=== PATIENT | female | born 1945 ===

== ENCOUNTER 2022-02-10 14:38 | Inpatient (IN) | payer MEDICARE ==
--- NOTE | 2022-02-10 15:05 | ERPHSYRPT ---
- History of Present Illness Time Seen by Provider: 02/10/22 14:55 Source: patient, family Exam Limitations: no limitations Physician History: This is a 76-year-old white female patient who was brought in by her family and was last seen normal last night. The report provided us by patient's daughter was the patient was found on the ground and could not get up on her own this morning which was several hours ago. Since that time she has had weakness on her right side and slurred speech. Patient arrives to the emergency department with right-sided weakness of her right and left lower extremities. Patient is right handed Timing/Duration: today Severity: mild Character of Deficits: new weakness (Right side), impaired speech (Per family members. She does not appear to have impaired speech on my examination) Deficits: decrease ability to stand, decrease ability to walk Baseline/Normal Cognition: alert oriented x 3 Current Cognition: alert oriented x 3 Baseline Gait: walks w/o assistance Associated Symptoms: weakness (Right side), slurred speech (Per family members) Allergies/Adverse Reactions: No Known Drug Allergies Allergy (Verified 02/10/22 15:35) Home Medications: No Reportable Medications [No Reported Medications] 02/10/22 [History] Travel Risk - International Travel Have you traveled outside of the country in past 3 weeks: No - Coronavirus Screening Are you exhibiting any of the following symptoms?: No Close contact with a COVID-19 positive Pt in past 14-21 Days: No - Review of Systems Constitutional: Weakness (Right upper and right lower extremity) Eyes: No Symptoms Ears, Nose, & Throat: No Symptoms Respiratory: No Symptoms Cardiac: No Symptoms Abdominal/Gastrointestinal: No Symptoms Genitourinary Symptoms: No Symptoms Musculoskeletal: No Symptoms Skin: No Symptoms Neurological: Gait Changes (Right upper and right lower extremity weakness that is new), Speech Changes (Per family members) Psychological: No Symptoms Endocrine: No Symptoms Hematologic/Lymphatic: No Symptoms Immunological/Allergic: No Symptoms All Other Systems: Reviewed and Negative - Past Medical History Pertinent Past Medical History: Yes - Past Surgical History Past Surgical History: Yes - Nursing Vital Signs Nursing Vital Signs: Initial Vital Signs Temperature 96.6 F 02/10/22 15:01 Pulse Rate 94 H 02/10/22 15:01 Blood Pressure 163/97 02/10/22 15:01 O2 Sat by Pulse Oximetry 97 02/10/22 15:01 Pain Scale Pain Intensity 0 - [place] Coma Scale Best Eye Response ([place]): (4) open spontaneously Best Verbal Response ([place]): (5) oriented Best Motor Response ([place]): (6) obeys commands Sul[place] Total: 15 - Physical Exam General Appearance: no apparent distress, alert, obese Eye Exam: bilateral eye: normal inspection, PERRL, EOMI Ears, Nose, Throat Exam: normal ENT inspection, TMs normal, pharynx normal, moist mucous membranes Neck Exam: normal inspection, non-tender, supple, full range of motion Respiratory: normal breath sounds, lungs clear, airway intact, No chest tenderness, No respiratory distress Cardiovascular: regular rate/rhythm, normal heart sounds, normal peripheral pu lses Gastrointestinal: soft, normal bowel sounds, No tenderness Pelvic Exam: not done Rectal Exam: not done Back Exam: normal inspection, normal range of motion, No CVA tenderness, No vertebral tenderness Extremity Exam: normal inspection, normal range of motion, pelvis stable, No pedal edema 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, 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: normal hearing, normal speech, PERRL, tongue midline Coordination/Gait: normal finger to nose, normal cerebellar function Motor/Sensory: no motor deficit, no sensory deficit, no pronator drift Skin Exam: normal color, warm, dry SpO2 Interpretation: normal O2 Delivery: Room Air - Course Nursing assessment & vital signs reviewed: Yes Ordered Tests: Active Orders 24 hr Category Date Time Status EKG-ER Only STAT Care 02/10/22 15:05 Active IV Insertion STAT Care 02/10/22 15:05 Active NPO (ED) STAT Care 02/10/22 15:05 Active Pulse Oximetry (ED) STAT Care 02/10/22 15:05 Active CHEST 1 VIEW (PORTABLE) Stat Exams 02/10/22 16:01 Completed ECHO W/2D AND DOPPLER [US] Stat Exams 02/10/22 16:21 Ordered HEAD WITHOUT CONTRAST [CT] Stat Exams 02/10/22 14:56 Completed MRI BRAIN W/O CONTRAST [MRI] Stat Exams 02/10/22 16:21 Taken BLOOD CULTURE Stat Lab 02/10/22 16:10 Received CBC W DIFF Stat Lab 02/10/22 15:14 Completed CMP Stat Lab 02/10/22 15:14 Completed CULTURE,URINE Stat Lab 02/10/22 16:06 Received [place] Screen Stat Lab 02/10/22 15:30 Completed UA W/RFX CULTURE Stat Lab 02/10/22 16:06 Completed Transfer Order Routine Transfer 02/10/22 Ordered Medication Summary Generic Name Dose Route Start Last Admin Trade Name Freirene PRN Reason Stop Dose Admin Ceftriaxone Sodium/Dextrose 1 g in 50 mls @ 100 mls/hr 02/10/22 16:51 Rocephin 1 Gm-D5w 50 Ml Bag IV 02/10/22 17:20 STAT STA Sodium Chloride 1,000 mls @ 999 mls/hr 02/10/22 16:52 Sodium Chloride 0.9% 1000 Ml IV 02/10/22 17:52 .Q1H1M STA Discontinued Medications Generic Name Dose Route Start Last Admin Trade Name Freq PRN Reason Stop Dose Admin Aspirin 325 mg 02/10/22 16:54 Aspirin 325 Mg Tablet.Ec PO 02/10/22 16:55 STAT ONE Sodium Chloride Confirm 02/10/22 16:58 Sodium Chloride 0.9% 1000 Ml Administered 02/10/22 16:59 Dose 1,000 mls @ ud .ROUTE .STK-MED ONE Ceftriaxone Sodium/Dextrose Confirm 02/10/22 16:58 Rocephin 1 Gm-D5w 50 Ml Bag Administered 02/10/22 16:59 Dose 1 g in 50 mls @ ud IV .STK-MED ONE Lab/Rad Data: Laboratory Result Diagrams 02/10/22 15:14 02/10/22 15:14 Laboratory Results 02/10/22 02/10/22 02/10/22 Range/Units 16:06 15:30 15:14 WBC (4.0-10.5) x10^3/uL RBC (4.1-5.4) x10^6/uL Hgb (12.0-16.0) g/dL Hct (35-47) % MCV (78-100) fL MCH (26-32) pg MCHC (32-36) g/dL RDW (11.5-14.0) % Plt Count (150-450) x10^3/uL MPV (7.5-11.0) fL Gran % (36.0-66.0) % Immature Gran % (Auto) (0.00-0.4) % Nucleat RBC Rel Count (0.00-0.1) % Eos # (Auto) (0-0.5) x10^3/uL Immature Gran # (Auto) (0.00-0.03) x10^3u/L Absolute Lymphs (auto) (1.0-4.6) x10^3/uL Absolute Monos (auto) (0.0-1.3) x10^3/uL Absolute Nucleated RBC (0.00-0.01) x10^3u/L Lymphocytes % (24.0-44.0) % Monocytes % (0.0-12.0) % Eosinophils % (0.00-5.0) % Basophils % (0.0-0.4) % Absolute Granulocytes (1.4-6.9) x10^3/uL Basophils # (0-0.4) x10^3/uL Sodium (137-145) mmol/L Potassium (3.5-5.1) mmol/L Chloride (98-107) mmol/L Carbon Dioxide (22-30) mmol/L Anion Gap (5-15) MEQ/L BUN (7-17) mg/dL Creatinine (0.52-1.04) mg/dL Estimated GFR ML/MIN Glucose (74-106) mg/dL Calcium (8.4-10.2) mg/dL Total Bilirubin (0.2-1.3) mg/dL AST (14-36) U/L ALT (0-35) U/L Alkaline Phosphatase (38-126) U/L Serum Total Protein (6.3-8.2) g/dL Albumin (3.5-5.0) g/dL Urinalys Dipstick Clnc MAIN LAB Urine Color YELLOW (YELLOW) Urine Appearance CLEAR (CLEAR) Urine pH 5.5 (5-6) Ur Specific [place] 1.025 (1.005-1.025) POC Urine Protein Conf NEGATIVE (Negative) Urine Ketones LARGE-80 (NEGATIVE) Urine Nitrite NEGATIVE (NEGATIVE) Urine Bilirubin NEGATIVE (NEGATIVE) Urine Urobilinogen 0.2 (0-1) mg/dL Urine Leukocytes MODERATE (NEGATIVE) Urine WBC (Auto) 16-25 (0-5) /HPF Urine RBC (Auto) 0-2 (0-2) /HPF U Epithel Cells (Auto) RARE (FEW) /HPF Urine Bacteria (Auto) FEW (NEGATIVE) /HPF Urine RBC TRACE NON-HEM (0-5) Aleks/ul Urine Mucus (Auto) SLIGHT (NEGATIVE) /HPF Ur Culture Indicated? YES Urine Glucose NEGATIVE (NEGATIVE) mg/dL Monoscreen NEGATIVE (Negative) Influenza Type A Ag NEGATIVE (NEGATIVE) Influenza Type B Ag NEGATIVE (NEGATIVE) RSV (PCR) NEGATIVE (Negative) SARS-CoV-2 (PCR) NEGATIVE (NEGATIVE) 02/10/22 02/10/22 Range/Units 15:14 15:14 WBC 17.0 H (4.0-10.5) x10^3/uL RBC 5.03 (4.1-5.4) x10^6/uL Hgb 14.2 (12.0-16.0) g/dL Hct 44.5 (35-47) % MCV 88.5 (78-100) fL MCH 28.2 (26-32) pg MCHC 31.9 L (32-36) g/dL RDW 12.8 (11.5-14.0) % Plt Count 296 (150-450) x10^3/uL MPV 9.7 (7.5-11.0) fL Gran % 88.2 H (36.0-66.0) % Immature Gran % (Auto) 0.4 (0.00-0.4) % Nucleat RBC Rel Count 0.0 (0.00-0.1) % Eos # (Auto) 0 (0-0.5) x10^3/uL Immature Gran # (Auto) 0.06 H (0.00-0.03) x10^3u/L Absolute Lymphs (auto) 0.96 L (1.0-4.6) x10^3/uL Absolute Monos (auto) 0.92 (0.0-1.3) x10^3/uL Absolute Nucleated RBC 0.00 (0.00-0.01) x10^3u/L Lymphocytes % 5.7 L (24.0-44.0) % Monocytes % 5.4 (0.0-12.0) % Eosinophils % 0.0 (0.00-5.0) % Basophils % 0.3 (0.0-0.4) % Absolute Granulocytes 15.00 H (1.4-6.9) x10^3/uL Basophils # 0.05 (0-0.4) x10^3/uL Sodium 140 (137-145) mmol/L Potassium 3.7 (3.5-5.1) mmol/L Chloride 106 (98-107) mmol/L Carbon Dioxide 24 (22-30) mmol/L Anion Gap 14.3 (5-15) MEQ/L BUN 10 (7-17) mg/dL Creatinine 0.74 (0.52-1.04) mg/dL Estimated GFR > 60.0 ML/MIN Glucose 120 H (74-106) mg/dL Calcium 9.4 (8.4-10.2) mg/dL Total Bilirubin 0.80 (0.2-1.3) mg/dL AST 25 (14-36) U/L ALT 19 (0-35) U/L Alkaline Phosphatase 74 (38-126) U/L Serum Total Protein 7.4 (6.3-8.2) g/dL Albumin 4.4 (3.5-5.0) g/dL Urinalys Dipstick Clnc Urine Color (YELLOW) Urine Appearance (CLEAR) Urine pH (5-6) Ur Specific [place] (1.005-1.025) POC Urine Protein Conf (Negative) Urine Ketones (NEGATIVE) Urine Nitrite (NEGATIVE) Urine Bilirubin (NEGATIVE) Urine Urobilinogen (0-1) mg/dL Urine Leukocytes (NEGATIVE) Urine WBC (Auto) (0-5) /HPF Urine RBC (Auto) (0-2) /HPF U Epithel Cells (Auto) (FEW) /HPF Urine Bacteria (Auto) (NEGATIVE) /HPF Urine RBC (0-5) Aleks/ul Urine Mucus (Auto) (NEGATIVE) /HPF Ur Culture Indicated? Urine Glucose (NEGATIVE) mg/dL Monoscreen (Negative) Influenza Type A Ag (NEGATIVE) Influenza Type B Ag (NEGATIVE) RSV (PCR) (Negative) SARS-CoV-2 (PCR) (NEGATIVE) - Progress Progress: unchanged, re-examined Progress Note: 02/10/22 15:38 CAT scan of the head without contrast shows nonacute senile brain with remote bilateral basal ganglia lacunar infarcts. 02/10/22 16:47 We obtained a telemetry neuro consultation from Dr. Tj Vieira. He recommends that the patient have an aspirin a day and be admitted and observed in the hospital setting and have a TIA work-up including echocardiogram and MRI of the brain. I spoke with Dr. Barfield who is covering from the hospitalist standpoint. We will admit the patient in the hospital. We are waiting reports from the chest x-ray and the urinalysis to determine source of leukocytosis. If there is no source we will still place her on an antibiotic and repeat labs in the morning. 02/10/22 17:00 I was just informed that the echocardiogram cannot be performed until 02/13/2022. Counseled pt/family regarding: lab results, diagnosis, rad results - Departure Departure Disposition: Home Clinical Impression: TIA (transient ischemic attack), Leukocytosis, UTI (urinary tract infection), Dehydration Condition: Stable Critical Care Time: Yes Critical Care Time(excluding separately billable procedures): Critical 30-74 mins (30) Referrals: ALEJANDRA COLLINS [facility]CH[facility]IC [Primary Care Provider] - Follow up/PCP as directed
--- NOTE | 2022-02-10 15:19 | XRAY ---
Indication: Right-sided weakness and dizziness. Stroke. Multiple contiguous axial images obtained through the head without contrast. Comparison: None Age-appropriate global atrophy and mild periventricular degenerative micro-ischemia bilaterally. Bilateral basal ganglia remote lacunar infarcts. No acute intracranial hemorrhage, abnormal extra-axial fluid collection, or mass effect. Fourth ventricle is midline without hydrocephalus. Bony calvarium intact. Visualized paranasal sinuses and mastoid air cells are clear. Impression: Nonacute senile brain with remote bilateral basal ganglia lacunar infarcts.
[2022-02-10 15:22] LABS: Basophil (Absolute #) 0.05 x10^3/uL (0-0.4); Eosinophil (Absolute #) 0 x10^3/uL (0-0.5); Hematocrit 44.5 % (35-47); Hemoglobin 14.2 g/dL (12.0-16.0); Lymphocyte (Absolute #) 0.96 x10^3/uL (1.0-4.6); Lymphocytes % 5.7 % (24.0-44.0); Mean Cell Volume 88.5 fL (78-100); Mean Corpuscular Hemoglobin 28.2 pg (26-32); Mean Corpuscular Hgb Concent. 31.9 g/dL (32-36); Mean Platelet Volume 9.7 fL (7.5-11.0); Monocyte (Absolute #) 0.92 x10^3/uL (0.0-1.3); Monocytes % 5.4 % (0.0-12.0); Neutrophil % 88.2 % (36.0-66.0); Platelet Count 296 x10^3/uL (150-450); Red Blood Count 5.03 x10^6/uL (4.1-5.4); Red Cell Distribution Width 12.8 % (11.5-14.0)
[2022-02-10 15:50] LABS: ALBUMIN 4.4 g/dL (3.5-5.0); ALKALINE PHOSPHATASE 74 U/L (38-126); ANION GAP 14.3 MEQ/L (5-15); BLOOD UREA NITROGEN 10 mg/dL (7-17); CHLORIDE 106 mmol/L (98-107); Calcium 9.4 mg/dL (8.4-10.2); Carbon Dioxide 24 mmol/L (22-30); Creatinine 1 0.74 mg/dL (0.52-1.04); EST GLOMERULAR FILTRATION RATE > 60.0 ML/MIN; Glucose 120 mg/dL (74-106); Potassium 3.7 mmol/L (3.5-5.1); SGOT/AST 25 U/L (14-36); SGPT/ALT 19 U/L (0-35); SODIUM 140 mmol/L (137-145); Total Protein 7.4 g/dL (6.3-8.2)
[2022-02-10 16:08] LABS: INFLUENZA A NEGATIVE (NEGATIVE); INFLUENZA B NEGATIVE (NEGATIVE); RESPIRATORY SYNCTIAL VIRUS NEGATIVE (Negative); SARS-CoV-2 Xpert Express NEGATIVE (NEGATIVE)
[2022-02-10 16:32] LABS: Appearance CLEAR (CLEAR); Bilirubin NEGATIVE (NEGATIVE); Glucose NEGATIVE (NEGATIVE); Ketones LARGE-80 (NEGATIVE); Ph 5.5 (5-6); RBC TRACE NON-HEM Ery/ul (0-5); Specific Gravity 1.025 (1.005-1.025)
[2022-02-10 16:33] LABS: Dipstick done @ ? MAIN LAB; Nitrite NEGATIVE (NEGATIVE); Protein,Urine Dip NEGATIVE (Negative); Urobilinogen 0.2 mg/dL (0-1)
[2022-02-10 16:35] LABS: Bacteria FEW /HPF (NEGATIVE); Epithelial Cells RARE /HPF (FEW); Mucus SLIGHT /HPF (NEGATIVE); RBC 0-2 /HPF (0-2)
[2022-02-10 16:36] LABS: Urine Cultured Indicated? YES
--- NOTE | 2022-02-10 16:36 | XRAY ---
Indication: Right-sided weakness. Leukocytosis. Comparison: None Portable chest demonstrates normal heart and lungs with incidental left lung calcified granuloma. Bony thorax intact with mild osteopenia and degenerative changes.
[2022-02-10] MEDS ORDERED: ROCEPHIN 1 Gm-D5w 50 ml Bag** 1 G/50 ML IVPB IV STA (16:51)
[2022-02-10] MEDS ORDERED: Sodium Chloride 0.9% 1000 ML 1,000 ML IV STA (16:52)
[2022-02-10] MEDS ORDERED: Ecotrin 325 MG PO ONE (16:54)
[2022-02-10] MEDS ORDERED: Sodium Chloride 0.9% 1000 ML 1,000 ML ONE (16:58)
[2022-02-10] MEDS ORDERED: ROCEPHIN 1 Gm-D5w 50 ml Bag** 1 G/50 ML IVPB IV ONE (16:58)
--- NOTE | 2022-02-10 17:02 | XRAY ---
Indication: Weakness, headache, confusion. Stroke. Sagittal, coronal, and axial MRI brain performed without contrast using T1, T2, FLAIR, diffusion, and ADC sequences. Comparison: None Age-appropriate global atrophy and mild periventricular degenerative micro-ischemia bilaterally. Right occipital lobe demonstrates a few small foci of restricted signal, largest 1.3 cm favoring acute micro-ischemia. Left occipital lobe demonstrates 8 mm focus of acute micro-ischemia. No acute intracranial hemorrhage, abnormal extra-axial fluid collection, or mass effect. Basal ganglia demonstrates incidental prominent Virchow-Misael spaces bilaterally. Fourth ventricle is midline without hydrocephalus. 7/8 cranial nerve complex bilaterally symmetric. Normal flow void signal within the major intracerebral circulation. Normal appearing craniocervical junction and sella turcica. Visualized paranasal sinuses are clear. Impression: 1. Multifocal occipital lobe acute micro-ischemia, right greater than left. No acute hemorrhage or mass effect. 2. Atrophy and degenerative micro-ischemia within normal limits for patient's age.
[2022-02-10] MEDS ORDERED: Zofran 4 MG/2 ML VIAL IV PRN (18:00)
[2022-02-10] MEDS ORDERED: TYLENOL 325 MG PO PRN (18:00)
[2022-02-11] MEDS: Sodium Chloride 0.9% 1000 ML 1,000 ML IV SCH ×3 (02:09→16:26)
[2022-02-11 05:24] LABS: Absolute Neutrophil Ct (ANC) 6.13 x10^3/uL (1.4-6.9); Basophil (Absolute #) 0.05 x10^3/uL (0-0.4); Eosinophil % 1.5 % (0.00-5.0); Eosinophil (Absolute #) 0.15 x10^3/uL (0-0.5); Hematocrit 41.1 % (35-47); Hemoglobin 13.1 g/dL (12.0-16.0); Lymphocyte (Absolute #) 2.69 x10^3/uL (1.0-4.6); Mean Cell Volume 89.3 fL (78-100); Mean Corpuscular Hemoglobin 28.5 pg (26-32); Mean Corpuscular Hgb Concent. 31.9 g/dL (32-36); Mean Platelet Volume 9.8 fL (7.5-11.0); Monocyte (Absolute #) 0.91 x10^3/uL (0.0-1.3); Monocytes % 9.1 % (0.0-12.0); Neutrophil % 61.6 % (36.0-66.0); Platelet Count 269 x10^3/uL (150-450)
[2022-02-11 05:51] LABS: ALBUMIN 3.6 g/dL (3.5-5.0); ALKALINE PHOSPHATASE 60 U/L (38-126); ANION GAP 10.7 MEQ/L (5-15); BLOOD UREA NITROGEN 6 mg/dL (7-17); CHLORIDE 109 mmol/L (98-107); Calcium 8.6 mg/dL (8.4-10.2); Carbon Dioxide 24 mmol/L (22-30); Creatinine 1 0.74 mg/dL (0.52-1.04); EST GLOMERULAR FILTRATION RATE > 60.0 ML/MIN; Glucose 101 mg/dL (74-106); Potassium 3.5 mmol/L (3.5-5.1); SGOT/AST 21 U/L (14-36); SGPT/ALT 15 U/L (0-35); SODIUM 140 mmol/L (137-145); Total Protein 6.2 g/dL (6.3-8.2)
--- NOTE | 2022-02-11 08:27 | PCM.HP ---
History of Present Illness - Chief Complaint Chief Complaint: TIA, UTI History of Present Illness: is a 76 year old female.who was brought in by her family and was last seen normal last night. The report provided us by patient's daughter was the patient was found on the ground and could not get up on her own this morning which was several hours ago. Since that time she has had weakness on her right side and slurred speech. Patient arrives to the emergency department with rig ht-sided weakness of her right and left lower extremities. Patient is right handed Timing/Duration: today Severity: mild Character of Deficits: new weakness (Right side), impaired speech (Per family members. She does not appear to have impaired speech on my examination) Deficits: decrease ability to stand, decrease ability to walk Baseline/Normal Cognition: alert oriented x 3 Current Cognition: alert oriented x 3 Baseline Gait: walks w/o assistance Associated Symptoms: weakness (Right side), slurred speech (Per family members) Patient is living by herself and has been sick for few days. - Review of Systems Constitutional: Lethargy, Weakness, No Fever, No Chills Eyes: No Symptoms Ears, Nose, & Throat: No Symptoms Respiratory: No Cough, No Short Of Breath Cardiac: No Chest Pain, No Edema, No Syncope Abdominal/Gastrointestinal: No Abdominal Pain, No Nausea, No Vomiting, No Diarrhea Genitourinary Symptoms: No Dysuria Musculoskeletal: No Back Pain, No Neck Pain Skin: No Rash Neurological: Focal Weakness, Gait Changes, Lethargy, Speech Changes, No Dizziness, No Sensory Changes Psychological: No Symptoms Endocrine: No Symptoms Hematologic/Lymphatic: No Symptoms Immunological/Allergic: No Symptoms Medications & Allergies Home Medications: Home Medication List No Reportable Medications [No Reported Medications] 02/10/22 [History Confirmed 02/10/22] Allergies/Adverse Reactions: Allergies Allergy/AdvReac Type Severity Reaction Status Date / Time No Known Drug Allergies Allergy Verified 02/10/22 15:35 - Past Medical History Past Medical History: Yes Neurological History: No Pertinent History ENT History: No Pertinent History Cardiac History: No Pertinent History Respiratory History: No Pertinent History Endocrine Medical History: No Pertinent History Musculoskelatal History: No Pertinent History GI Medical History: No Pertinent History History: No Pertinent History Pyscho-Social History: No Pertinent History Reproductive Disorders: No Pertinent History - Female History Are you now?: No - Past Surgical History Past Surgical History: Yes Neuro Surgical History: No Pertinent History Cardiac History: No Pertinent History Respiratory Surgery: No Pertinent History GI Surgical History: No Pertinent History Genitourinary Surgical Hx: No Pertinent History Musculskeletal Surgical Hx: Orthopedic Surgery Female Surgical History: No Pertinent History Other Surgical History: hand sx - Social History Smoking Status: Never smoker Alcohol: None Drug Use: none - Physical Exam Vital Signs: Vital Signs - 24 hr Temp Pulse Resp BP Pulse Ox 02/11/22 07:01 98.0 F 91 H 16 183/81 96 02/11/22 04:00 98.6 F 90 16 171/77 96 02/11/22 00:18 98.2 F 101 H 16 136/66 96 02/10/22 19:57 99.3 F 100 H 20 140/99 94 L 02/10/22 18:18 97.8 F 95 H 16 172/92 98 02/10/22 18:05 95 02/10/22 17:45 92 H 16 180/82 95 02/10/22 15:23 94 L 02/10/22 15:01 96.6 F 94 H 163/97 97 General Appearance: moderate distress, lethargy Neurologic Exam: alert, nml station & gait, motor deficits (right side), sensory deficit (right side), disoriented, confusion Eye Exam: PERRL/EOMI, eyes nml inspection Ears, Nose, Throat Exam: normal ENT inspection, TMs normal, pharynx normal, moist mucous membranes Neck Exam: normal inspection, non-tender, supple, full range of motion Respiratory Exam: normal breath sounds, lungs clear, No respiratory distress Cardiovascular Exam: regular rate/rhythm, normal heart sounds, normal peripheral pulses Gastrointestinal/Abdomen Exam: soft, normal bowel sounds, No tenderness, No mass Back Exam: normal inspection, normal range of motion, No CVA tenderness, No vertebral tenderness Extremity Exam: normal inspection, normal range of motion, pelvis stable Skin Exam: normal color, warm, dry, No rash Lymphatic Exam: No adenopathy Results - Labs Lab/Micro Results: Lab Results-Last 24 Hours 02/10/22 02/10/22 02/10/22 Range/Units 15:14 15:14 15:14 WBC 17.0 H (4.0-10.5) x10^3/uL RBC 5.03 (4.1-5.4) x10^6/uL Hgb 14.2 (12.0-16.0) g/dL Hct 44.5 (35-47) % MCV 88.5 (78-100) fL MCH 28.2 (26-32) pg MCHC 31.9 L (32-36) g/dL RDW 12.8 (11.5-14.0) % Plt Count 296 (150-450) x10^3/uL MPV 9.7 (7.5-11.0) fL Gran % 88.2 H (36.0-66.0) % Immature Gran % (Auto) 0.4 (0.00-0.4) % Nucleat RBC Rel Count 0.0 (0.00-0.1) % Eos # (Auto) 0 (0-0.5) x10^3/uL Immature Gran # (Auto) 0.06 H (0.00-0.03) x10^3u/L Absolute Lymphs (auto) 0.96 L (1.0-4.6) x10^3/uL Absolute Monos (auto) 0.92 (0.0-1.3) x10^3/uL Absolute Nucleated RBC 0.00 (0.00-0.01) x10^3u/L Lymphocytes % 5.7 L (24.0-44.0) % Monocytes % 5.4 (0.0-12.0) % Eosinophils % 0.0 (0.00-5.0) % Basophils % 0.3 (0.0-0.4) % Absolute Granulocytes 15.00 H (1.4-6.9) x10^3/uL Basophils # 0.05 (0-0.4) x10^3/uL Sodium 140 (137-145) mmol/L Potassium 3.7 (3.5-5.1) mmol/L Chloride 106 (98-107) mmol/L Carbon Dioxide 24 (22-30) mmol/L Anion Gap 14.3 (5-15) MEQ/L BUN 10 (7-17) mg/dL Creatinine 0.74 (0.52-1.04) mg/dL Estimated GFR > 60.0 ML/MIN Glucose 120 H (74-106) mg/dL Calcium 9.4 (8.4-10.2) mg/dL Total Bilirubin 0.80 (0.2-1.3) mg/dL AST 25 (14-36) U/L ALT 19 (0-35) U/L Alkaline Phosphatase 74 (38-126) U/L Serum Total Protein 7.4 (6.3-8.2) g/dL Albumin 4.4 (3.5-5.0) g/dL Urinalys Dipstick Clnc Urine Color (YELLOW) Urine Appearance (CLEAR) Urine pH (5-6) Ur Specific [place] (1.005-1.025) POC Urine Protein Conf (Negative) Urine Ketones (NEGATIVE) Urine Nitrite (NEGATIVE) Urine Bilirubin (NEGATIVE) Urine Urobilinogen (0-1) mg/dL Urine Leukocytes (NEGATIVE) Urine WBC (Auto) (0-5) /HPF Urine RBC (Auto) (0-2) /HPF U Epithel Cells (Auto) (FEW) /HPF Urine Bacteria (Auto) (NEGATIVE) /HPF Urine RBC (0-5) Aleks/ul Urine Mucus (Auto) (NEGATIVE) /HPF Ur Culture Indicated? Urine Glucose (NEGATIVE) mg/dL Monoscreen (Negative) Influenza Type A Ag NEGATIVE (NEGATIVE) Influenza Type B Ag NEGATIVE (NEGATIVE) RSV (PCR) NEGATIVE (Negative) SARS-CoV-2 (PCR) NEGATIVE (NEGATIVE) Group A Strep Antibody (NEGATIVE) 02/10/22 02/10/22 02/10/22 Range/Units 15:30 16:06 16:15 WBC (4.0-10.5) x10^3/uL RBC (4.1-5.4) x10^6/uL Hgb (12.0-16.0) g/dL Hct (35-47) % MCV (78-100) fL MCH (26-32) pg MCHC (32-36) g/dL RDW (11.5-14.0) % Plt Count (150-450) x10^3/uL MPV (7.5-11.0) fL Gran % (36.0-66.0) % Immature Gran % (Auto) (0.00-0.4) % Nucleat RBC Rel Count (0.00-0.1) % Eos # (Auto) (0-0.5) x10^3/uL Immature Gran # (Auto) (0.00-0.03) x10^3u/L Absolute Lymphs (auto) (1.0-4.6) x10^3/uL Absolute Monos (auto) (0.0-1.3) x10^3/uL Absolute Nucleated RBC (0.00-0.01) x10^3u/L Lymphocytes % (24.0-44.0) % Monocytes % (0.0-12.0) % Eosinophils % (0.00-5.0) % Basophils % (0.0-0.4) % Absolute Granulocytes (1.4-6.9) x10^3/uL Basophils # (0-0.4) x10^3/uL Sodium (137-145) mmol/L Potassium (3.5-5.1) mmol/L Chloride (98-107) mmol/L Carbon Dioxide (22-30) mmol/L Anion Gap (5-15) MEQ/L BUN (7-17) mg/dL Creatinine (0.52-1.04) mg/dL Estimated GFR ML/MIN Glucose (74-106) mg/dL Calcium (8.4-10.2) mg/dL Total Bilirubin (0.2-1.3) mg/dL AST (14-36) U/L ALT (0-35) U/L Alkaline Phosphatase (38-126) U/L Serum Total Protein (6.3-8.2) g/dL Albumin (3.5-5.0) g/dL Urinalys Dipstick Clnc MAIN LAB Urine Color YELLOW (YELLOW) Urine Appearance CLEAR (CLEAR) Urine pH 5.5 (5-6) Ur Specific [place] 1.025 (1.005-1.025) POC Urine Protein Conf NEGATIVE (Negative) Urine Ketones LARGE-80 (NEGATIVE) Urine Nitrite NEGATIVE (NEGATIVE) Urine Bilirubin NEGATIVE (NEGATIVE) Urine Urobilinogen 0.2 (0-1) mg/dL Urine Leukocytes MODERATE (NEGATIVE) Urine WBC (Auto) 16-25 (0-5) /HPF Urine RBC (Auto) 0-2 (0-2) /HPF U Epithel Cells (Auto) RARE (FEW) /HPF Urine Bacteria (Auto) FEW (NEGATIVE) /HPF Urine RBC TRACE NON-HEM (0-5) Aleks/ul Urine Mucus (Auto) SLIGHT (NEGATIVE) /HPF Ur Culture Indicated? YES Urine Glucose NEGATIVE (NEGATIVE) mg/dL Monoscreen NEGATIVE (Negative) Influenza Type A Ag (NEGATIVE) Influenza Type B Ag (NEGATIVE) RSV (PCR) (Negative) SARS-CoV-2 (PCR) (NEGATIVE) Group A Strep Antibody NOT DETECTED (NEGATIVE) 02/11/22 02/11/22 Range/Units 05:10 05:10 WBC 10.0 (4.0-10.5) x10^3/uL RBC 4.60 (4.1-5.4) x10^6/uL Hgb 13.1 (12.0-16.0) g/dL Hct 41.1 (35-47) % MCV 89.3 (78-100) fL MCH 28.5 (26-32) pg MCHC 31.9 L (32-36) g/dL RDW 13.0 (11.5-14.0) % Plt Count 269 (150-450) x10^3/uL MPV 9.8 (7.5-11.0) fL Gran % 61.6 (36.0-66.0) % Immature Gran % (Auto) 0.3 (0.00-0.4) % Nucleat RBC Rel Count 0.0 (0.00-0.1) % Eos # (Auto) 0.15 (0-0.5) x10^3/uL Immature Gran # (Auto) 0.03 (0.00-0.03) x10^3u/L Absolute Lymphs (auto) 2.69 (1.0-4.6) x10^3/uL Absolute Monos (auto) 0.91 (0.0-1.3) x10^3/uL Absolute Nucleated RBC 0.00 (0.00-0.01) x10^3u/L Lymphocytes % 27.0 (24.0-44.0) % Monocytes % 9.1 (0.0-12.0) % Eosinophils % 1.5 (0.00-5.0) % Basophils % 0.5 (0.0-0.4) % Absolute Granulocytes 6.13 (1.4-6.9) x10^3/uL Basophils # 0.05 (0-0.4) x10^3/uL Sodium 140 (137-145) mmol/L Potassium 3.5 (3.5-5.1) mmol/L Chloride 109 H (98-107) mmol/L Carbon Dioxide 24 (22-30) mmol/L Anion Gap 10.7 (5-15) MEQ/L BUN 6 L (7-17) mg/dL Creatinine 0.74 (0.52-1.04) mg/dL Estimated GFR > 60.0 ML/MIN Glucose 101 (74-106) mg/dL Calcium 8.6 (8.4-10.2) mg/dL Total Bilirubin 0.80 (0.2-1.3) mg/dL AST 21 (14-36) U/L ALT 15 (0-35) U/L Alkaline Phosphatase 60 (38-126) U/L Serum Total Protein 6.2 L (6.3-8.2) g/dL Albumin 3.6 (3.5-5.0) g/dL Urinalys Dipstick Clnc Urine Color (YELLOW) Urine Appearance (CLEAR) Urine pH (5-6) Ur Specific [place] (1.005-1.025) POC Urine Protein Conf (Negative) Urine Ketones (NEGATIVE) Urine Nitrite (NEGATIVE) Urine Bilirubin (NEGATIVE) Urine Urobilinogen (0-1) mg/dL Urine Leukocytes (NEGATIVE) Urine WBC (Auto) (0-5) /HPF Urine RBC (Auto) (0-2) /HPF U Epithel Cells (Auto) (FEW) /HPF Urine Bacteria (Auto) (NEGATIVE) /HPF Urine RBC (0-5) Aleks/ul Urine Mucus (Auto) (NEGATIVE) /HPF Ur Culture Indicated? Urine Glucose (NEGATIVE) mg/dL Monoscreen (Negative) Influenza Type A Ag (NEGATIVE) Influenza Type B Ag (NEGATIVE) RSV (PCR) (Negative) SARS-CoV-2 (PCR) (NEGATIVE) Group A Strep Antibody (NEGATIVE) - Radiology Impressions Radiology Exams & Impressions: Radiology Procedures Category Date Time Status CHEST 1 VIEW (PORTABLE) Stat Exams 02/10/22 16:01 Completed HEAD WITHOUT CONTRAST [CT] Stat Exams 02/10/22 14:56 Completed MRI BRAIN W/O CONTRAST [MRI] Stat Exams 02/10/22 16:21 Completed [id number] MRI/MRI BRAIN W/O CONTRAST Indication: Weakness, headache, confusion. Stroke. Sagittal, coronal, and axial MRI brain performed without contrast using T1, T2, FLAIR, diffusion, and ADC sequences. Comparison: None Age-appropriate global atrophy and mild periventricular degenerative micro-ischemia bilaterally. Right occipital lobe demonstrates a few small foci of restricted signal, largest 1.3 cm favoring acute micro-ischemia. Left occipital lobe demonstrates 8 mm focus of acute micro-ischemia. No acute intracranial hemorrhage, abnormal extra-axial fluid collection, or mass effect. Basal ganglia demonstrates incidental prominent Virchow-Misael spaces bilaterally. Fourth ventricle is midline without hydrocephalus. 7/8 cranial nerve complex bilaterally symmetric. Normal flow void signal within the major intracerebral circulation. Normal appearing craniocervical junction and sella turcica. Visualized paranasal sinuses are clear. Impression: 1. Multifocal occipital lobe acute micro-ischemia, right greater than left. No acute hemorrhage or mass effect. 2. Atrophy and degenerative micro-ischemia within normal limits for patient's age. RAD/CHEST 1 VIEW (PORTABLE) Indication: Right-sided weakness. Leukocytosis. Comparison: None Portable chest demonstrates normal heart and lungs with incidental left lung calcified granuloma. Bony thorax intact with mild osteopenia and degenerative changes. Assessment/Plan (1) TIA (transient ischemic attack) Current Visit: Yes Status: Acute Assessment & Plan: Chief Complaint Diagnosis TIA, UTI Allergies Allergy/AdvReac Type Severity Reaction Status Date / Time No Known Drug Allergies Allergy Verified 02/10/22 15:35 Vital Signs (Last 24 hours) Temp Pulse Resp BP Pulse Ox 02/11/22 07:01 98.0 F 91 H 16 183/81 96 02/11/22 04:00 98.6 F 90 16 171/77 96 02/11/22 00:18 98.2 F 101 H 16 136/66 96 02/10/22 19:57 99.3 F 100 H 20 140/99 94 L 02/10/22 18:18 97.8 F 95 H 16 172/92 98 02/10/22 18:05 95 02/10/22 17:45 92 H 16 180/82 95 02/10/22 15:23 94 L 02/10/22 15:01 96.6 F 94 H 163/97 97 Home Medications Medication Instructions Recorded Confirmed Last Taken Type No Reportable Medications [No 02/10/22 02/10/22 Unknown History Reported Medications] Current Medications Generic Name Dose Route Start Last Admin Trade Name Freq PRN Reason Stop Dose Admin Acetaminophen 650 mg 02/10/22 18:00 Acetaminophen 325 Mg Tablet PO 03/12/22 17:59 Q4H PRN PRN PAIN, FEVER, HEADACHE Aspirin 325 mg 02/11/22 10:00 Aspirin 325 Mg Tablet.Ec PO 03/13/22 09:59 QAM ALISA Sodium Chloride 1,000 mls @ 100 mls/hr 02/10/22 18:00 02/11/22 05:08 Sodium Chloride 0.9% 1000 Ml IV 03/12/22 17:59 Not Given .Q10H ALISA Ceftriaxone Sodium/Dextrose 1 g in 50 mls @ 100 mls/hr 02/11/22 10:00 Rocephin 1 Gm-D5w 50 Ml Bag IV 02/14/22 09:59 Q24H10 ALISA Ondansetron HCl 4 mg 02/10/22 18:00 Ondansetron Hcl 4 Mg/2 Ml Vial IV 03/12/22 17:59 Q6H PRN PRN NAUSEA/VOMITING Discontinued Medications Generic Name Dose Route Start Last Admin Trade Name Guido PRN Reason Stop Dose Admin Aspirin 325 mg 02/10/22 16:54 02/10/22 17:05 Aspirin 325 Mg Tablet.Ec PO 02/10/22 16:55 325 mg STAT ONE Administration Ceftriaxone Sodium/Dextrose 1 g in 50 mls @ 100 mls/hr 02/10/22 16:51 02/10/22 17:06 Rocephin 1 Gm-D5w 50 Ml Bag IV 02/10/22 17:20 100 ml/hr STAT STA 100 mls/hr Administration Sodium Chloride 1,000 mls @ 999 mls/hr 02/10/22 16:52 02/10/22 17:01 Sodium Chloride 0.9% 1000 Ml IV 02/10/22 17:52 999 mls/hr .Q1H1M STA Administration Sodium Chloride Confirm 02/10/22 16:58 Sodium Chloride 0.9% 1000 Ml Administered 02/10/22 16:59 Dose 1,000 mls @ ud .ROUTE .STK-MED ONE Ceftriaxone Sodium/Dextrose Confirm 02/10/22 16:58 Rocephin 1 Gm-D5w 50 Ml Bag Administered 02/10/22 16:59 Dose 1 g in 50 mls @ ud IV .STK-MED ONE Intake & Output (Last 24 hours) 02/08/22 02/09/22 02/10/22 02/11/22 11:59 11:59 11:59 11:59 Intake Total 360 Output Total 700 Balance -340 Weight 81.4 kg Microbiology Results (Last 24 hours) 02/10/22 16:06 Urine, Void Urine Culture - Pending 02/10/22 16:10 Blood Blood Culture Gram Stain - Pending 02/10/22 16:10 Blood Blood Culture - Pending 02/10/22 16:15 Blood Blood Culture Gram Stain - Pending 02/10/22 16:15 Blood Blood Culture - Pending Laboratory Results (Last 24 hours) 02/11/22 02/11/22 02/10/22 05:10 05:10 16:15 WBC 10.0 RBC 4.60 Hgb 13.1 Hct 41.1 MCV 89.3 MCH 28.5 MCHC 31.9 L RDW 13.0 Plt Count 269 MPV 9.8 Gran % 61.6 Immature Gran % (Auto) 0.3 Nucleat RBC Rel Count 0.0 Eos # (Auto) 0.15 Immature Gran # (Auto) 0.03 Absolute Lymphs (auto) 2.69 Absolute Monos (auto) 0.91 Absolute Nucleated RBC 0.00 Lymphocytes % 27.0 Monocytes % 9.1 Eosinophils % 1.5 Basophils % 0.5 Absolute Granulocytes 6.13 Basophils # 0.05 Sodium 140 Potassium 3.5 Chloride 109 H Carbon Dioxide 24 Anion Gap 10.7 BUN 6 L Creatinine 0.74 Estimated GFR > 60.0 Glucose 101 Calcium 8.6 Total Bilirubin 0.80 AST 21 ALT 15 Alkaline Phosphatase 60 Serum Total Protein 6.2 L Albumin 3.6 Urinalys Dipstick Clnc Urine Color Urine Appearance Urine pH Ur Specific [place] POC Urine Protein Conf Urine Ketones Urine Nitrite Urine Bilirubin Urine Urobilinogen Urine Leukocytes Urine WBC (Auto) Urine RBC (Auto) U Epithel Cells (Auto) Urine Bacteria (Auto) Urine RBC Urine Mucus (Auto) Ur Culture Indicated? Urine Glucose Monoscreen Influenza Type A Ag Influenza Type B Ag RSV (PCR) SARS-CoV-2 (PCR) Group A Strep Antibody NOT DETECTED 02/10/22 02/10/22 02/10/22 16:06 15:30 15:14 WBC RBC Hgb Hct MCV MCH MCHC RDW Plt Count MPV Gran % Immature Gran % (Auto) Nucleat RBC Rel Count Eos # (Auto) Immature Gran # (Auto) Absolute Lymphs (auto) Absolute Monos (auto) Absolute Nucleated RBC Lymphocytes % Monocytes % Eosinophils % Basophils % Absolute Granulocytes Basophils # Sodium Potassium Chloride Carbon Dioxide Anion Gap BUN Creatinine Estimated GFR Glucose Calcium Total Bilirubin AST ALT Alkaline Phosphatase Serum Total Protein Albumin Urinalys Dipstick Clnc MAIN LAB Urine Color YELLOW Urine Appearance CLEAR Urine pH 5.5 Ur Specific [place] 1.025 POC Urine Protein Conf NEGATIVE Urine Ketones LARGE-80 Urine Nitrite NEGATIVE Urine Bilirubin NEGATIVE Urine Urobilinogen 0.2 Urine Leukocytes MODERATE Urine WBC (Auto) 16-25 Urine RBC (Auto) 0-2 U Epithel Cells (Auto) RARE Urine Bacteria (Auto) FEW Urine RBC TRACE NON-HEM Urine Mucus (Auto) SLIGHT Ur Culture Indicated? YES Urine Glucose NEGATIVE Monoscreen NEGATIVE Influenza Type A Ag NEGATIVE Influenza Type B Ag NEGATIVE RSV (PCR) NEGATIVE SARS-CoV-2 (PCR) NEGATIVE Group A Strep Antibody 02/10/22 02/10/22 15:14 15:14 WBC 17.0 H RBC 5.03 Hgb 14.2 Hct 44.5 MCV 88.5 MCH 28.2 MCHC 31.9 L RDW 12.8 Plt Count 296 MPV 9.7 Gran % 88.2 H Immature Gran % (Auto) 0.4 Nucleat RBC Rel Count 0.0 Eos # (Auto) 0 Immature Gran # (Auto) 0.06 H Absolute Lymphs (auto) 0.96 L Absolute Monos (auto) 0.92 Absolute Nucleated RBC 0.00 Lymphocytes % 5.7 L Monocytes % 5.4 Eosinophils % 0.0 Basophils % 0.3 Absolute Granulocytes 15.00 H Basophils # 0.05 Sodium 140 Potassium 3.7 Chloride 106 Carbon Dioxide 24 Anion Gap 14.3 BUN 10 Creatinine 0.74 Estimated GFR > 60.0 Glucose 120 H Calcium 9.4 Total Bilirubin 0.80 AST 25 ALT 19 Alkaline Phosphatase 74 Serum Total Protein 7.4 Albumin 4.4 Urinalys Dipstick Clnc Urine Color Urine Appearance Urine pH Ur Specific [place] POC Urine Protein Conf Urine Ketones Urine Nitrite Urine Bilirubin Urine Urobilinogen Urine Leukocytes Urine WBC (Auto) Urine RBC (Auto) U Epithel Cells (Auto) Urine Bacteria (Auto) Urine RBC Urine Mucus (Auto) Ur Culture Indicated? Urine Glucose Monoscreen Influenza Type A Ag Influenza Type B Ag RSV (PCR) SARS-CoV-2 (PCR) Group A Strep Antibody Orders (Last 24 hours) Category Date Time Status Bedrest TOLERATED Activity 02/10/22 18:00 Active Admit as Inpatient ROUTINE Care 02/10/22 18:00 Active EKG-ER Only STAT Care 02/10/22 15:05 Completed Elevate HOB TOLERATED Care 02/10/22 18:00 Active IV Insertion STAT Care 02/10/22 15:05 Completed NPO (ED) STAT Care 02/10/22 15:05 Completed Neuro Checks STAT Care 02/10/22 18:00 Active Pulse Oximetry (ED) STAT Care 02/10/22 15:05 Completed Telemetry PROTOCOL Care 02/10/22 18:00 Active Weight,Daily 0600 Care 02/10/22 18:00 Active House Regular Diet Diet 02/10/22 Dinner Active CHEST 1 VIEW (PORTABLE) Stat Exams 02/10/22 16:01 Completed HEAD WITHOUT CONTRAST [CT] Stat Exams 02/10/22 14:56 Completed MRI BRAIN W/O CONTRAST [MRI] Stat Exams 02/10/22 16:21 Completed BLOOD CULTURE Stat Lab 02/10/22 16:10 Received CBC W DIFF AM.LAB Lab 02/11/22 05:10 Completed CBC W DIFF Stat Lab 02/10/22 15:14 Completed CMP AM.LAB Lab 02/11/22 05:10 Completed CMP Stat Lab 02/10/22 15:14 Completed COVID/FLU/RSV Panel Stat Lab 02/10/22 15:14 Completed CULTURE,URINE Stat Lab 02/10/22 16:06 Received Group A Strep Stat Lab 02/10/22 16:15 Completed Webb Screen Stat Lab 02/10/22 15:30 Completed UA W/RFX CULTURE Stat Lab 02/10/22 16:06 Completed Acetaminophen 325 mg [Tylenol 325 mg] Med 02/10/22 18:00 Active 650 mg PO Q4H PRN PRN Aspirin EC 325 mg [Ecotrin 325 MG] Med 02/11/22 10:00 Active 325 mg PO QAM Aspirin EC 325 mg [Ecotrin 325 MG] Med 02/10/22 16:54 Discontinued 325 mg PO STAT ONE Ceftriaxone 1 GM/50 ML PREMIX* [ROCEPHIN 1 Gm-D5w 50 ml Med 02/11/22 10:00 Active Bag] 1 g in 50 ml IV Q24H10 Ceftriaxone 1 GM/50 ML PREMIX* [ROCEPHIN 1 Gm-D5w 50 ml Med 02/10/22 16:51 Discontinued Bag] 1 g in 50 ml IV STAT Ceftriaxone 1 GM/50 ML PREMIX* [ROCEPHIN 1 Gm-D5w 50 ml Med 02/10/22 16:58 Discontinued Bag] 1 g in 50 ml IV UD NaCl 0.9% 1000 ml [Sodium Chloride 0.9% 1000 ML] 1,000 Med 02/10/22 16:58 Discontinued ml .ROUTE UD NaCl 0.9% 1000 ml [Sodium Chloride 0.9% 1000 ML] 1,000 Med 02/10/22 18:00 A ctive ml IV 100 mls/hr NaCl 0.9% 1000 ml [Sodium Chloride 0.9% 1000 ML] 1,000 Med 02/10/22 16:52 Discontinued ml IV 999 mls/hr Ondansetron HCl 4 mg/2 ml [Zofran 4 MG/2 ML VIAL] Med 02/10/22 18:00 Active 4 mg IV Q6H PRN PRN EKG REPEAT IN AM RT 02/10/22 18:00 Completed Pulse Oximetry ROUTINE RT 02/10/22 18:00 Completed Code(s): G45.9 - TRANSIENT CEREBRAL ISCHEMIC ATTACK, UNSPECIFIED (2) Dehydration Current Visit: Yes Status: Acute Code(s): E86.0 - DEHYDRATION (3) UTI (urinary tract infection) Current Visit: Yes Status: Acute Code(s): N39.0 - URINARY TRACT INFECTION, SITE NOT SPECIFIED
[2022-02-11] MEDS: Ecotrin 325 MG PO SCH (09:44)
[2022-02-11] MEDS: ROCEPHIN 1 Gm-D5w 50 ml Bag** 1 G/50 ML IVPB IV SCH (09:46)
[2022-02-11] MEDS: Zestril 10 MG*** 10 MG, hydroDIURIL 25 MG*** 12.5 MG PO SCH ×2 (10:52)
[2022-02-11] MEDS ORDERED: Seroquel 25 MG PO ONE (17:41)
[2022-02-12 05:45] LABS: Hematocrit 39.8 % (35-47); Mean Cell Volume 89.8 fL (78-100); Mean Corpuscular Hemoglobin 29.3 pg (26-32); Mean Corpuscular Hgb Concent. 32.7 g/dL (32-36); Mean Platelet Volume 10.4 fL (7.5-11.0); Platelet Count 258 x10^3/uL (150-450); Red Blood Count 4.43 x10^6/uL (4.1-5.4); Red Cell Distribution Width 13.3 % (11.5-14.0); White Blood Count 6.5 x10^3/uL (4.0-10.5)
[2022-02-12 05:52] LABS: ALBUMIN 3.7 g/dL (3.5-5.0); ALKALINE PHOSPHATASE 53 U/L (38-126); BLOOD UREA NITROGEN 11 mg/dL (7-17); CHLORIDE 108 mmol/L (98-107); Calcium 8.8 mg/dL (8.4-10.2); Carbon Dioxide 28 mmol/L (22-30); Creatinine 1 0.92 mg/dL (0.52-1.04); EST GLOMERULAR FILTRATION RATE > 60.0 ML/MIN; Glucose 105 mg/dL (74-106); Potassium 3.6 mmol/L (3.5-5.1); SGOT/AST 20 U/L (14-36); SGPT/ALT 16 U/L (0-35); SODIUM 140 mmol/L (137-145); Total Protein 6.4 g/dL (6.3-8.2)
[2022-02-12] MEDS: ROCEPHIN 1 Gm-D5w 50 ml Bag** 1 G/50 ML IVPB IV SCH (09:04)
[2022-02-12] MEDS: Ecotrin 325 MG PO SCH (09:04)
[2022-02-12] MEDS: Zestril 10 MG*** 10 MG, hydroDIURIL 25 MG*** 12.5 MG PO SCH ×2 (09:05)
[2022-02-12] MEDS ORDERED: ENOXAPARIN SODIUM SQ SCH ×2 (10:00→12:00)
[2022-02-12 12:03] VITALS: BP 132/60; PULSE 84; O2SAT 95
--- NOTE | 2022-02-12 13:38 | PCM.DS ---
Discharge Summary Date of Admission: 02/10/22 17:56 Admitting Physician: DEXTER PENA Primary Care Provider: ALEJANDRA COLLINS Allergies Allergies No Known Drug Allergies Allergy (Verified 02/10/22 15:35) Hospital Summary - Hospital Course Hospital Course: Chief Complaint Diagnosis TIA, UTI Allergies Allergy/AdvReac Type Severity Reaction Status Date / Time No Known Drug Allergies Allergy Verified 02/10/22 15:35 Vital Signs (Last 24 hours) Temp Pulse Resp BP Pulse Ox 02/12/22 12:01 98.6 F 84 18 132/60 95 02/12/22 08:23 97.3 F 89 18 138/77 98 02/12/22 05:10 97.5 F 89 18 126/59 94 L 02/11/22 23:19 97.5 F 86 18 109/53 92 L 02/11/22 19:58 97.8 F 91 H 18 117/93 92 L 02/11/22 16:00 98 F 86 18 142/70 98 Home Medications Medication Instructions Recorded Confirmed Last Taken Type No Reportable Medications [No 02/10/22 02/10/22 Unknown History Reported Medications] Current Medications Generic Name Dose Route Start Last Admin Trade Name Freq PRN Reason Stop Dose Admin Acetaminophen 650 mg 02/10/22 18:00 Acetaminophen 325 Mg Tablet PO 03/12/22 17:59 Q4H PRN PRN PAIN, FEVER, HEADACHE Aspirin 325 mg 02/11/22 10:00 02/12/22 09:04 Aspirin 325 Mg Tablet.Ec PO 03/13/22 09:59 325 mg QAM ALISA Administration Lisinopril 10 mg/ 0 mg 02/11/22 10:00 02/12/22 09:05 Hydrochlorothiazide 12.5 mg PO 03/13/22 09:59 10 mg DAILY ALISA Administration Sodium Chloride 1,000 mls @ 100 mls/hr 02/10/22 18:00 02/11/22 16:26 Sodium Chloride 0.9% 1000 Ml IV 03/12/22 17:59 100 mls/hr .Q10H ALISA Administration Ceftriaxone Sodium/Dextrose 1 g in 50 mls @ 100 mls/hr 02/11/22 10:00 2 09:04 Rocephin 1 Gm-D5w 50 Ml Bag IV 02/14/22 09:59 100 mls/hr Q24H10 ALISA Administration Ondansetron HCl 4 mg 02/10/22 18:00 Ondansetron Hcl 4 Mg/2 Ml Vial IV 03/12/22 17:59 Q6H PRN PRN NAUSEA/VOMITING Discontinued Medications Generic Name Dose Route Start Last Admin Trade Name Freq PRN Reason Stop Dose Admin Aspirin 325 mg 02/10/22 16:54 02/10/22 17:05 Aspirin 325 Mg Tablet.Ec PO 02/10/22 16:55 325 mg STAT ONE Administration Enoxaparin Sodium 60 mg 02/12/22 10:00 Enoxaparin Sodium 60 Mg/0.6 Ml Syringe SQ 03/14/22 09:59 DAILY ALISA Enoxaparin Sodium 40 mg 02/12/22 12:00 Enoxaparin Sodium 40 Mg/0.4 Ml Syringe SQ 03/14/22 11:59 DAILY ALISA Ceftriaxone Sodium/Dextrose 1 g in 50 mls @ 100 mls/hr 02/10/22 16:51 02/10/22 17:06 Rocephin 1 Gm-D5w 50 Ml Bag IV 02/10/22 17:20 100 ml/hr STAT STA 100 mls/hr Administration Sodium Chloride 1,000 mls @ 999 mls/hr 02/10/22 16:52 02/10/22 17:01 Sodium Chloride 0.9% 1000 Ml IV 02/10/22 17:52 999 mls/hr .Q1H1M STA Administration Sodium Chloride Confirm 02/10/22 16:58 Sodium Chloride 0.9% 1000 Ml Administered 02/10/22 16:59 Dose 1,000 mls @ ud .ROUTE .STK-MED ONE Ceftriaxone Sodium/Dextrose Confirm 02/10/22 16:58 Rocephin 1 Gm-D5w 50 Ml Bag Administered 02/10/22 16:59 Dose 1 g in 50 mls @ ud IV .STK-MED ONE Quetiapine Fumarate 25 mg 02/11/22 17:41 02/11/22 17:46 Quetiapine Fumarate 25 Mg Tablet PO 02/11/22 17:42 25 mg ONCE ONE Administration Intake & Output (Last 24 hours) 02/10/22 02/11/22 02/12/22 02/13/22 11:59 11:59 11:59 11:59 Intake Total 940 2419 Output Total 700 2500 Balance 240 -81 Weight 81.4 kg 81.3 kg Microbiology Results (Last 24 hours) 02/10/22 16:06 Urine, Void Urine Culture - Final MIXED NAYELI; 3 OR MORE TYPES. NO PREDOMINANT ORGANISM. NO FURTHER WORKUP. PLEASE RESUBMIT IF CLINICALLY INDICATED. 02/10/22 16:15 Blood Blood Culture Gram Stain - Pending 02/10/22 16:15 Blood Blood Culture - Preliminary NO GROWTH TO DATE 02/10/22 16:10 Blood Blood Culture Gram Stain - Pending 02/10/22 16:10 Blood Blood Culture - Preliminary NO GROWTH TO DATE Laboratory Results (Last 24 hours) 02/12/22 02/12/22 05:15 05:15 WBC 6.5 RBC 4.43 Hgb 13.0 Hct 39.8 MCV 89.8 MCH 29.3 MCHC 32.7 RDW 13.3 Plt Count 258 MPV 10.4 Sodium 140 Potassium 3.6 Chloride 108 H Carbon Dioxide 28 Anion Gap 8.0 BUN 11 Creatinine 0.92 Estimated GFR > 60.0 Glucose 105 Calcium 8.8 Total Bilirubin 0.60 AST 20 ALT 16 Alkaline Phosphatase 53 Serum Total Protein 6.4 Albumin 3.7 Orders (Last 24 hours) Category Date Time Status Discharge Routine Discharge 02/12/22 Ordered CBC AM.LAB Lab 02/12/22 05:15 Completed CMP AM.LAB Lab 02/12/22 05:15 Completed Enoxaparin Sodium [Enoxaparin Sodium] Med 02/12/22 12:00 Discontinued 40 mg SQ DAILY Enoxaparin Sodium [Enoxaparin Sodium] Med 02/12/22 10:00 Discontinued 60 mg SQ DAILY Quetiapine Fumarate 25 mg [Seroquel 25 MG] Med 02/11/22 17:41 Discontinued 25 mg PO ONCE ONE Patient Care Notes (Last 24 hours) 02/12/22 13:03 Nursing Note by Lesvia Brown This nurse rounded with Dr. Pena. Discharge home with Seroquel 25 mg po at bedtime if needed. Lisinopril/HCTZ 10/12.5 mg po daily. Aspirin 325 mg by mouth daily. Cephalaxin 500 mg by mouth four times a day x 5 days. Follow up with Dr. Pena or family physician this week. Initialized on 02/12/22 13:03 - END OF NOTE 02/11/22 17:38 Nursing Note by Alana Monson PT family becoming concerned, states pt is confused and "not acting right" PT is hallucinating things on her hands and not holding her siverwear correctly when eating. DR Pena is notifed and orders 25mg Seroquel 25 mg PO and requests a family member to stay the night with the pt Initialized on 02/11/22 17:38 - END OF NOTE - Vitals & Intake/Output Vital Signs: Vital Signs Temperature 98.6 F 02/12/22 12:01 Pulse Rate 84 02/12/22 12:01 Respiratory Rate 18 02/12/22 12:01 Blood Pressure 132/60 02/12/22 12:01 O2 Sat by Pulse Oximetry 95 02/12/22 12:01 Intake & Output: Intake & Output 02/10/22 02/11/22 02/12/22 02/13/22 11:59 11:59 11:59 11:59 Intake Total 940 2419 Output Total 700 2500 Balance 240 -81 Weight 81.4 kg 81.3 kg - Lab Result Diagrams: 02/12/22 05:15 02/12/22 05:15 Lab Results-Last 24 Hrs: Lab Results-Last 24 Hours 02/12/22 02/12/22 Range/Units 05:15 05:15 WBC 6.5 (4.0-10.5) x10^3/uL RBC 4.43 (4.1-5.4) x10^6/uL Hgb 13.0 (12.0-16.0) g/dL Hct 39.8 (35-47) % MCV 89.8 (78-100) fL MCH 29.3 (26-32) pg MCHC 32.7 (32-36) g/dL RDW 13.3 (11.5-14.0) % Plt Count 258 (150-450) x10^3/uL MPV 10.4 (7.5-11.0) fL Sodium 140 (137-145) mmol/L Potassium 3.6 (3.5-5.1) mmol/L Chloride 108 H (98-107) mmol/L Carbon Dioxide 28 (22-30) mmol/L Anion Gap 8.0 (5-15) MEQ/L BUN 11 (7-17) mg/dL Creatinine 0.92 (0.52-1.04) mg/dL Estimated GFR > 60.0 ML/MIN Glucose 105 (74-106) mg/dL Calcium 8.8 (8.4-10.2) mg/dL Total Bilirubin 0.60 (0.2-1.3) mg/dL AST 20 (14-36) U/L ALT 16 (0-35) U/L Alkaline Phosphatase 53 (38-126) U/L Serum Total Protein 6.4 (6.3-8.2) g/dL Albumin 3.7 (3.5-5.0) g/dL Micro Results-Entire Visit: Microbiology 02/10/22 16:06 Urine Culture - Final Urine, Void MIXED NAYELI; 3 OR MORE TYPES. NO PREDOMINANT ORGANISM. NO FURTHER WORKUP. PLEASE RESUBMIT IF CLINICALLY INDICATED. 02/10/22 16:15 Blood Culture - Preliminary Blood NO GROWTH TO DATE 02/10/22 16:10 Blood Culture - Preliminary Blood NO GROWTH TO DATE - Radiology Exams Ordered Rad Exams-Entire Visit: Radiology Procedures Category Date Time Status CHEST 1 VIEW (PORTABLE) Stat Exams 02/10/22 16:01 Completed HEAD WITHOUT CONTRAST [CT] Stat Exams 02/10/22 14:56 Completed MRI BRAIN W/O CONTRAST [MRI] Stat Exams 02/10/22 16:21 Completed - Procedures and Test Procedures and Tests throughout Hospitalization: Therapy Orders & Screens 02/10/22 18:00 EKG REPEAT IN AM Comment: Discharge Exam General Appearance: no apparent distress, alert Neurologic Exam: alert, oriented x 3, cooperative, normal mood/affect, nml cerebellar function, sensation nml, No motor deficits Eye Exam: PERRL, EOMI, eyes nml inspection Ears, Nose, Throat Exam: normal ENT inspection, pharynx normal, moist mucous membranes Neck Exam: normal inspection, non-tender, supple, full range of motion Respiratory Exam: normal breath sounds, lungs clear, No respiratory distress Cardiovascular Exam: regular rate/rhythm, normal heart sounds Gastrointestinal/Abdomen Exam: soft, No tenderness, No mass Pelvic Exam: deferred Rectal Exam: deferred Back Exam: normal inspection, normal range of motion, No CVA tenderness, No vertebral tenderness Extremity Exam: normal inspection, normal range of motion Skin Exam: normal color, warm, dry Final Diagnosis/Problem List - Final Discharge Diagnosis/Problem (1) TIA (transient ischemic attack) Current Visit: Yes Status: Resolved Code(s): G45.9 - TRANSIENT CEREBRAL ISCHEMIC ATTACK, UNSPECIFIED (2) Dehydration Current Visit: Yes Status: Resolved Code(s): E86.0 - DEHYDRATION (3) UTI (urinary tract infection) Current Visit: Yes Status: Resolved Code(s): N39.0 - URINARY TRACT INFECTION, SITE NOT SPECIFIED - Discharge Discharge Date: 02/12/22 Disposition: Home, Self-Care Condition: Stable Prescriptions: New Aspirin EC 325 mg [Ecotrin 325 MG] 325 mg PO QAM #30 tablet Cephalexin Mh 500 mg [Keflex 500 mg] 500 mg PO QID 5 Days #21 cap Lisinopril/Hydrochlorothiazide [Zestoretic 10-12.5 mg Tablet] 1 each PO QAM #30 tablet Instructions: High Blood Pressure (DC), Transient Ischemic Attack (DC), Urinary Tract Infection, Adult (DC) Additional Instructions: Its very important to choose a Primary Care Provider and keep follow up visits, Continue to take your Blood Pressure medication Lisinopril/ hydroclorathyazide 10-12.5mg Daily and Daily 325 mg aspirin. Also take your prescribed antibiotic Cephalexin 500 mg four times a day for five days. You are also recieving a prescription for Seroquel 25 mg should pt have trouble sleeping, only take if needed. Report back to the hospital if confusion worsens or pt expresses lingering weakness on either side, facial drooping or slurred speech Follow up with: ALEJANDRA COLLINS NP [Primary Care Provider] - Forms: Discharge Instructions, Work/School Release Form
== END 2022-02-12 14:34 | disposition home or self-care (01) | DRG 69 ==
LOC: ED 14:38 → MED SURG 17:56 → OBSVTOIN 17:56
PROVIDERS: ADMIT General Practice; ATTEND General Practice
DX: G45.9 Transient cerebral ischemic attack, unspecified (principal); N39.0 Urinary tract infection, site not specified; E86.0 Dehydration; Z79.899 Other long term (current) drug therapy; Z20.828 Contact with and (suspected) exposure to other viral communicable diseases
CPT/HCPCS: 0241U; 36000; 36415; 70450; 70551; 71045; 80053; 81015; 85025; 85027; 86308; 87040; 87086; 87651; 93005; 94760; 99284; 99291; J0696; A9270-GY